=== PATIENT | male | born 1940 | race Caucasian/White ===

== ENCOUNTER 2020-04-05 18:37 | Inpatient (IN) | payer MEDICARE, OTHER ==
[~2020-04-05] VITALS: Ht 180.3 cm; Wt 81.3 kg
[2020-04-05] MEDS ORDERED: IV NORMAL SALINE 500 ML BAG IV ONE (19:00)
--- NOTE | 2020-04-05 19:20 | NUR ---
Dr. Shubham Christina on panel call with Steve Tejada DNP. Patient accepted for admission to [facility], diagnosis: near syncope and PUI.
[2020-04-05] MEDS ORDERED: calcium citrate PO (19:41)
[2020-04-05] MEDS ORDERED: vitamin b-6 PO (19:41)
[2020-04-05] MEDS ORDERED: MELO-105 PO (19:41)
[2020-04-05] MEDS ORDERED: LITH300T3 PO (19:41)
[2020-04-05] MEDS ORDERED: fish oil PO (19:41)
[2020-04-05] MEDS ORDERED: MEMA28CA5 PO (19:41)
[2020-04-05] MEDS ORDERED: IMIP25TA6 PO (19:41)
[2020-04-05] MEDS ORDERED: SOLI5TAB7 PO (19:41)
[2020-04-05] MEDS ORDERED: LOSA25TA27 PO (19:41)
[2020-04-05] MEDS ORDERED: ALEN70TA6 PO (19:41)
[2020-04-05] MEDS ORDERED: VALP250C3 PO (19:41)
[2020-04-05] MEDS ORDERED: MAGN400C PO (19:41)
[2020-04-05] MEDS ORDERED: CHOL10002 PO (19:41)
[2020-04-05] MEDS ORDERED: MIRA50TA PO (19:41)
[2020-04-05] MEDS ORDERED: diclofenac TOP (19:41)
[2020-04-05] MEDS ORDERED: LITH450T2 PO (19:41)
[2020-04-05] MEDS ORDERED: FLUO20CA36 PO (19:41)
[2020-04-05] MEDS ORDERED: TAMS-3 PO (19:41)
[2020-04-05] MEDS ORDERED: vitamin b-12 PO (19:41)
[2020-04-05] MEDS ORDERED: VITA400T9 PO (19:41)
[2020-04-05] MEDS ORDERED: PENT400T17 PO (19:41)
[2020-04-05 19:46] LABS: BASOPHILS % (AUTO) 0.2 % (0.0-2.0); EOSINOPHILS % (AUTO) 0.4 % (0.0-7.0); HEMOGLOBIN 12.6 g/dL (12.5-16.3); LYMPHOCYTES # (AUTO) 0.4 K/uL (20.0-40.0); LYMPHOCYTES % (AUTO) 3.2 % (20.5-51.5); MEAN CORPUSCULAR HEMOGLOBIN 30.2 uug (23.8-33.4); MEAN CORPUSCULAR HGB CONC 33 g/dL (32.5-36.3); MEAN CORPUSCULAR VOLUME 91.5 fL (73.0-96.2); MONOCYTES # (AUTO) 0.9 K/uL (2.0-10.0); MONOCYTES % (AUTO) 7.1 % (0.0-11.0); NEUTROPHILS # (AUTO) 10.8 K/uL (1.8-8.9); NEUTROPHILS % (AUTO) 89.1 % (38.5-71.5); PLATELET COUNT (AUTO) 164 K/uL (152-348); RED BLOOD CELL COUNT(AUTO) 4.15 MIL/uL (4.06-5.63); WHITE BLOOD COUNT (AUTO) 12.2 K/uL (3.6-10.2)
[2020-04-05] MEDS ORDERED: ACETAMINOPHEN 650 MG/20.3 ML LIQUID UDC PO ONE (20:00)
[2020-04-05] MEDS ORDERED: ACETAMINOPHEN 650 MG/20.3 ML LIQUID UDC ONE (20:07)
[2020-04-05 20:09] LABS: CREATININE 1.3 mg/dL (0.6-1.3); POTASSIUM 4.5 mmol/L (3.5-5.1)
[2020-04-05] MEDS ORDERED: CEFEPIME HCL 1 G in IV DEXTROSE 5% 50 ML IV ONE (20:15)
[2020-04-05] MEDS ORDERED: VANCOMYCIN 1G/D5W 200 ML PIGGYBACK IV ONE (20:15)
[2020-04-05] MEDS ORDERED: CEFEPIME HCL 1 G VIAL ONE (20:40)
[2020-04-05] MEDS ORDERED: MAGNESIUM HYDROXIDE 30 ML LIQUID UDC PO PRN (20:45)
[2020-04-05] MEDS ORDERED: ACETAMINOPHEN 325 MG TABLET PO PRN (20:45)
[2020-04-05] MEDS ORDERED: MELOXICAM 7.5 MG TABLET PO PRN (20:45)
[2020-04-05] MEDS ORDERED: Z GUARD REMEDY PASTE 57 GM TUBE TOP PRN (20:45)
[2020-04-05] MEDS ORDERED: DICLOFENAC 1% TOP PRN (20:45)
[2020-04-05] MEDS ORDERED: ONDANSETRON 4 MG/2 ML VIAL IV PRN (20:45)
--- NOTE | 2020-04-05 21:05 | NUR ---
Report givento Twila LEDESMA
[2020-04-05 21:15] LABS: *BILIRUBIN,URIN NEGATIVE (NEGATIVE); *CLARITY,URINE CLEAR (CLEAR); *COLOR,URINE YELLOW (YELLOW); *KETONES,URINE NEGATIVE (NEGATIVE); *UROBILINOGEN,URINE 0.2 E.U./dl (NORMAL); LEUKOCYTE ESTERASE ,URINE 1+ (NEGATIVE); NITRITE, URINE POSITIVE (NEGATIVE); PH,URINE 7.5 (5.0-8.0); UGLUCOSE NEGATIVE (NEGATIVE)
[2020-04-05 21:17] LABS: *BLOOD, URINE TRACE (NEGATIVE)
--- NOTE | 2020-04-05 21:20 | NUR ---
NEW ADMISSION PT RECEIVED INTO CARE VIA HEIDI FROM ER. PT IS ALERT/ORIENTED X1, FARSI SPEAKING ONLY, BUT UNDERSTANDS SOME TANZANIAN AND CAN FOLLOW DIRECTIONS. ALL PERTINENT ASSESSMENTS COMPLETED, VS ARE WNL, PT IS AFEBRILE, AND RESTING COMFORTABLY IN BED, WATCHING TELEVISION. VANCOMYCIN INFUSION CONTINUED FROM ER, ORDERED. ALL SAFETY, FALL, AND ISOLATION PRECAUTIONS ARE IN PLACE. CALL LIGHT AND PERSONAL ITEMS ARE WITHIN REACH. WILL CONTINUE TO MONITOR AND ASSESS.
[2020-04-05 21:49] VITALS: BP 111/58
[2020-04-05] MEDS: ENOXAPARIN SODIUM 40 MG/0.4 ML DISP.SYRIN SQ SCH (22:20)
[2020-04-05 22:44] LABS: BILIRUBIN,DIRECT 0.1 mg/dL (0.0-0.2); BILIRUBIN,TOTAL 0.5 mg/dL (0.2-1.0)
[2020-04-06] VITALS: BP 115/62
[2020-04-06] MEDS ORDERED: CEFEPIME HCL 1 G VIAL ONE (00:27)
[2020-04-06 01:44] LABS: RBC,URINE 0-3 /HPF (0-3)
[2020-04-06 01:45] LABS: BACTERIA,URINE MODERATE /HPF (NONE SEEN); SQUAMOUS EPITHELIAL CELL,UR FEW /HPF (NONE SEEN)
[2020-04-06 04:30] VITALS: BP 115/65
--- NOTE | 2020-04-06 05:00 | NUR ---
Patient slept intermittently throughout night after admission with no complaints of pain or discomfort verbalized or noted/observed by this nurse. All prescribed medications provided as ordered, with no adverse side effects verbalized by patient or noted/observed by this nurse. All safety, fall, and isolation precautions remain in effect. Call light and personal items remain within reach.
[2020-04-06] MEDS: IV NS 1000 ML 1,000 ML IV PRN ×2 (05:08→21:12)
[2020-04-06] MEDS ORDERED: CEFEPIME HCL 1 G in IV DEXTROSE 5% 50 ML IV SCH (06:00)
[2020-04-06 06:06] LABS: BASOPHILS % (AUTO) 0.1 % (0.0-2.0); EOSINOPHILS % (AUTO) 0.1 % (0.0-7.0); HEMATOCRIT 36.9 % (36.7-47.1); HEMOGLOBIN 12.2 g/dL (12.5-16.3); LYMPHOCYTES # (AUTO) 0.7 K/uL (20.0-40.0); LYMPHOCYTES % (AUTO) 6.3 % (20.5-51.5); MEAN CORPUSCULAR HEMOGLOBIN 30.5 uug (23.8-33.4); MEAN CORPUSCULAR HGB CONC 33 g/dL (32.5-36.3); MEAN CORPUSCULAR VOLUME 92.2 fL (73.0-96.2); MONOCYTES # (AUTO) 1.3 K/uL (2.0-10.0); MONOCYTES % (AUTO) 11.6 % (0.0-11.0); NEUTROPHILS # (AUTO) 9.4 K/uL (1.8-8.9); NEUTROPHILS % (AUTO) 81.9 % (38.5-71.5); PLATELET COUNT (AUTO) 163 K/uL (152-348); RED BLOOD CELL COUNT(AUTO) 4.01 MIL/uL (4.06-5.63); WHITE BLOOD COUNT (AUTO) 11.5 K/uL (3.6-10.2)
[2020-04-06 06:28] LABS: CREATININE 1.3 mg/dL (0.6-1.3); MAGNESIUM 2.3 mg/dL (1.8-2.4); PHOSPHOROUS 3.1 mg/dL (2.5-4.9); POTASSIUM 4.2 mmol/L (3.5-5.1)
[2020-04-06 06:30] LABS: THYROID STIMULATING HORMONE 0.303 mIU/mL (0.358-3.740)
--- NOTE | 2020-04-06 08:10 | NUR ---
RECEIVED PATIENT LAYING IN BED, AWAKE, ALERT AND ORIENTED TIME 2. NO SIGNS OF RESPIRATORY DISTRESS AT THIS TIME, PATIENT IS SATURATING WELL ON ROOM AIR. PATIENT HAS NO COMPLAINTS OF PAIN OR DISCOMFORT AT THIS TIME. IV PATENT AND INTACT ON RIGHT HAND 20 GAUGE RUNNING NORMAL SALINE AT 75 CC PER HOUR. ALL SAFETY AND FALL PRECAUTION MEASURES ARE IN PLACE BED LOCKED AND IN LOWEST POSITION WITH ALARM ACTIVATED. CALL LIGHT AND PERSONAL ITEMS ARE WITHIN REACH. WILL CONTINUE TO MONITOR AND ASSESS.
[2020-04-06] MEDS ORDERED: SOLIFENACIN SUCCINATE 5 MG TABEC PO SCH (09:00)
[2020-04-06] MEDS ORDERED: Medication Not On Formulary EA (Mirabegron (Myrbetriq) 50 MG) PO SCH (09:00)
[2020-04-06] MEDS: TAMSULOSIN HCL 0.4 MG CAP.SR.24H PO SCH (09:38)
[2020-04-06] MEDS: OMEGA-3 FATTY ACIDS/FISH OIL CAPSULE PO SCH (09:38)
[2020-04-06] MEDS: CYANOCOBALAMIN 100 MCG TABLET PO SCH (09:38)
[2020-04-06] MEDS: OXYBUTYNIN CHLORIDE 5 MG TABLET PO SCH ×2 (09:39→17:04)
[2020-04-06] MEDS: CALCIUM CITRATE 950MG TAB PO SCH (09:39)
[2020-04-06] MEDS: FLUOXETINE HCL 20 MG CAPSULE PO SCH (09:39)
[2020-04-06] MEDS: MEMANTINE HCL 10 MG TABLET PO SCH ×2 (09:39→17:04)
[2020-04-06] MEDS: MAGNESIUM OXIDE 400 MG TABLET PO SCH (09:39)
[2020-04-06] MEDS: VALPROIC ACID 250 MG CAPSULE PO SCH ×2 (09:40→17:20)
[2020-04-06] MEDS: PYRIDOXINE HCL 100 MG TABLET PO SCH (09:40)
[2020-04-06] MEDS: IMIPRAMINE HCL 25 MG TABLET PO SCH (09:40)
[2020-04-06] MEDS: VITAMIN E 400 UNITS CAPSULE PO SCH (09:40)
[2020-04-06] MEDS: PENTOXIFYLLINE 400 MG TABLET.SA PO SCH ×3 (09:41→17:04)
[2020-04-06 10:15] VITALS: BP 108/61
[2020-04-06] MEDS: CEFEPIME HCL 1 G in IV DEXTROSE 5% 50 ML IV SCH ×2 (13:07→21:11)
[2020-04-06] MEDS ORDERED: VANCOMYCIN IV 1,000 MG in IV DEXTROSE 5% 250 ML IV SCH (15:00)
--- NOTE | 2020-04-06 16:02 | NUR ---
SUPPORT MERCHANDISER report patient's blood pressure at 71/31, reassess and blood pressure was 70/35. Put patient in Trendelenburg position and monitored blood pressure every 15 minutes.
[2020-04-06 16:27] VITALS: BP 71/36
--- NOTE | 2020-04-06 17:37 | NUR ---
Blood pressure is currently 99/47 and is sitting comfortably in bed eating dinner. Will continue to monitor
--- NOTE | 2020-04-06 18:40 | NUR ---
Patient resting comfortably in bed. Patient reported back pain and medication was given as ordered . All prescribed medications provided as ordered, with no adverse side effects verbalized by patient or noted/observed by this nurse. All safety,fall, and isolation precautions remain in effect. Call light and personal items remain within reach. Will endorse to oncoming nurse to reposition patient every 2 hours to decrease discomfort.
--- NOTE | 2020-04-06 19:15 | NUR ---
Patient in bed awake. Patient speaks Farsi but can understand simple commands. Patient denies any acute distress or pain at this time. Patient is NSR with First degree block on tele monitor. Vitals stable, on room air and saturating WNL. Pt is afebrile. RH 20G IV is intact with NS running at 75cc. Safety measures in place. Bed low and locked in position. Call light within reach. Will continue with the plan of care.
[2020-04-06 20:45] VITALS: BP 104/56
[2020-04-06] MEDS: ENOXAPARIN SODIUM 40 MG/0.4 ML DISP.SYRIN SQ SCH (21:04)
--- NOTE | 2020-04-06 21:35 | NUR ---
Gave report to BALTAZAR Hudson. Vitals stable
--- NOTE | 2020-04-06 21:36 | NUR ---
RECEIVED PT AWAKE, ALERT AND ORIENTEDX4. PT IN NO ACUTE DISTRESS. IV INTACT. SAFETY AND COMFORT PROVIDED.WILL CONTINUE TO MONITOR.
[2020-04-07] VITALS: BP 120/58
--- NOTE | 2020-04-07 00:01 | NUR ---
DC ISOLATION PER GORDO PERES NP. COVID RESULT NEGATIVE. PT TO BE TRANSFERRED IN ROOM 312.
[2020-04-07 04:43] VITALS: BP 93/55
[2020-04-07] MEDS: CEFEPIME HCL 1 G in IV DEXTROSE 5% 50 ML IV SCH ×3 (05:27→22:02)
--- NOTE | 2020-04-07 06:23 | NUR ---
PT SLEPT INTERMITTENTLY. PT IN NO ACUTE DISTRESS. IV INTACT. PRESCRIBED MEDICATION GIVEN AND PT TOLERATED IT WELL.PT COVID NEGATIVE RESULT. PT CHANGE ROOM FROM 314 TO 312. SAFETY AND COMFORT PROVIDED. ALL NEEDS ARE MET. WILL ENDORSE TO INCOMING NURSE FOR CONTINUITY OF CARE.
[2020-04-07] MEDS: CYANOCOBALAMIN 100 MCG TABLET PO SCH (08:20)
[2020-04-07] MEDS: TAMSULOSIN HCL 0.4 MG CAP.SR.24H PO SCH (08:20)
[2020-04-07] MEDS: OXYBUTYNIN CHLORIDE 5 MG TABLET PO SCH ×2 (08:20→16:55)
[2020-04-07] MEDS: FLUOXETINE HCL 20 MG CAPSULE PO SCH (08:21)
[2020-04-07] MEDS: MAGNESIUM OXIDE 400 MG TABLET PO SCH (08:21)
[2020-04-07] MEDS: MEMANTINE HCL 10 MG TABLET PO SCH ×2 (08:21→16:54)
[2020-04-07] MEDS: OMEGA-3 FATTY ACIDS/FISH OIL CAPSULE PO SCH (08:21)
[2020-04-07] MEDS: PENTOXIFYLLINE 400 MG TABLET.SA PO SCH ×3 (08:24→16:54)
[2020-04-07] MEDS: VALPROIC ACID 250 MG CAPSULE PO SCH ×2 (08:24→16:54)
[2020-04-07] MEDS: PYRIDOXINE HCL 100 MG TABLET PO SCH (08:29)
[2020-04-07] MEDS: IMIPRAMINE HCL 25 MG TABLET PO SCH (08:29)
[2020-04-07] MEDS: CALCIUM CITRATE 950MG TAB PO SCH (08:29)
[2020-04-07] MEDS: VITAMIN E 400 UNITS CAPSULE PO SCH (08:29)
--- NOTE | 2020-04-07 08:30 | NUR ---
RECEIVED PATIENT IN BED AWAKE ALERT COOPERATIVE AND COMPLIANT WITH HIS MEDICATIONS REMAIN ON IVF ORDERED WITH NO S/S OF INFILTERATION ON SITE TELE ORDERED SR AT THIS TIME VOIDING WELL USING THE URINAL CALL LIGHTS AND PERSONAL BELONGINGS ARE PLACED WITHIN EASY REACH MADE COMFORTABLE WILL CONTINUE TO OBSERVE.
[2020-04-07 09:19] LABS: CREATININE 1.2 mg/dL (0.6-1.3); POTASSIUM 4.3 mmol/L (3.5-5.1)
--- NOTE | 2020-04-07 09:30 | NUR ---
PATIENT SEEN BY THE PHYSICAL THERAPY FOR AMBULATION AND THERAPEUTIC EXERCISES PATIENT AMBULATED WITH THE FRONT WHEEL WALKER IN THE HALLWAY WITH FAIR ENDURANCE AND BACK TO THE BED SO PER THE PHYSICAL THERAPIST THE GOAL IS FOR REHAB EVAL STATED WILL INFORM THE ELECTRIC ACCOUNTING MACHINE OPERATOR.
--- NOTE | 2020-04-07 11:09 | NUR ---
PATIENT SEEN AND EXAMINED BY NADINE VARGAS WITH NO NEW ORDERS AT THIS TIME.
[2020-04-07 12:28] VITALS: BP 102/58
[2020-04-07] MEDS: IV NS 1000 ML 1,000 ML IV PRN (12:57)
[2020-04-07 16:12] VITALS: BP 99/55
--- NOTE | 2020-04-07 16:45 | NUR ---
IV SITE ON HIS RIGHT HAND NOTED LEAKING REMOVED AND REINSERTED TO HIS LEFT HAND WITH ONE ATTEMPT AND CONTINUED ON THE IVF ORDERED.
--- NOTE | 2020-04-07 17:00 | NUR ---
DR ROSE RN MDS COORDINATOR HERE TO SEE PATIENT AND STATED TO STOP THE IVF AWARE THAT HIS SYSTOLIC BLOOD PRESSURE IS 97-99 SYSTOLIC STATED ITS OKAY TO STOP WILL ORDER ECHO TO EVALUATE HIS HEART FUTHER.IVF STOPPED AT THIS TIME
--- NOTE | 2020-04-07 18:36 | NUR ---
CHEST XRAY COMPLETED ORDERED AWAITING FOR RESULTS.
--- NOTE | 2020-04-07 19:30 | NUR ---
Received patient lying in bed calm. No signs or symptoms of acute distress at this time. AAOx3. filler and trimmer on and showing sinus rhythm. Patient is on RA and denies SOB. Left hand 20G patent and intact. Safety measures intact and will continue to monitor.
[2020-04-07] MEDS: ENOXAPARIN SODIUM 40 MG/0.4 ML DISP.SYRIN SQ SCH (20:20)
[2020-04-07 20:59] VITALS: BP 104/62
--- NOTE | 2020-04-07 21:28 | NUR ---
Spoke to Dr. Maurer in regard to Chest XR results. No new orders at this time.
[2020-04-08 00:21] VITALS: BP 115/58
[2020-04-08 04:00] VITALS: BP 105/56
[2020-04-08] MEDS: CEFEPIME HCL 1 G in IV DEXTROSE 5% 50 ML IV SCH ×2 (05:39→13:27)
--- NOTE | 2020-04-08 06:14 | NUR ---
PT SLEPT WELL. COIL WINDING MACHINES SET UP MECHANIC ON SINUS RHYTHM. AAOX3. NO SIGNS OR SYMPTOMS OF ACUTE DISTRESS AT THIS TIME. LEFT HAND IV PATENT AND INTACT. PT TOLERATED ALL MEDICATIONS WELL. ALL PATIENT NEEDS WERE MET AND ATTENDED TO. SAFETY MEASURES REMAIN INTACT AND WILL ENDORSE TO ONCOMING SHIFT.
[2020-04-08 06:19] LABS: BASOPHILS % (AUTO) 0.3 % (0.0-2.0); EOSINOPHILS # (AUTO) 0.3 K/uL (0.0-0.7); EOSINOPHILS % (AUTO) 3.9 % (0.0-7.0); HEMATOCRIT 32.9 % (36.7-47.1); HEMOGLOBIN 11.1 g/dL (12.5-16.3); LYMPHOCYTES # (AUTO) 1.4 K/uL (20.0-40.0); LYMPHOCYTES % (AUTO) 19.4 % (20.5-51.5); MEAN CORPUSCULAR HEMOGLOBIN 31.1 uug (23.8-33.4); MEAN CORPUSCULAR HGB CONC 34 g/dL (32.5-36.3); MEAN CORPUSCULAR VOLUME 92.1 fL (73.0-96.2); MONOCYTES # (AUTO) 0.7 K/uL (2.0-10.0); MONOCYTES % (AUTO) 10.4 % (0.0-11.0); NEUTROPHILS # (AUTO) 4.6 K/uL (1.8-8.9); PLATELET COUNT (AUTO) 154 K/uL (152-348); RED BLOOD CELL COUNT(AUTO) 3.57 MIL/uL (4.06-5.63)
[2020-04-08 06:31] LABS: CREATININE 1.3 mg/dL (0.6-1.3); POTASSIUM 4.4 mmol/L (3.5-5.1)
[2020-04-08 07:20] LABS: PHOSPHOROUS 3.1 mg/dL (2.5-4.9)
[2020-04-08 07:21] LABS: MAGNESIUM 2.2 mg/dL (1.8-2.4)
[2020-04-08] MEDS: OMEGA-3 FATTY ACIDS/FISH OIL CAPSULE PO SCH (08:16)
[2020-04-08] MEDS: IMIPRAMINE HCL 25 MG TABLET PO SCH (08:17)
[2020-04-08] MEDS: MAGNESIUM OXIDE 400 MG TABLET PO SCH (08:17)
[2020-04-08] MEDS: VALPROIC ACID 250 MG CAPSULE PO SCH ×2 (08:17→16:08)
[2020-04-08] MEDS: TAMSULOSIN HCL 0.4 MG CAP.SR.24H PO SCH (08:17)
[2020-04-08] MEDS: FLUOXETINE HCL 20 MG CAPSULE PO SCH (08:17)
[2020-04-08] MEDS: CYANOCOBALAMIN 100 MCG TABLET PO SCH (08:17)
[2020-04-08] MEDS: CALCIUM CITRATE 950MG TAB PO SCH (08:17)
[2020-04-08] MEDS: VITAMIN E 400 UNITS CAPSULE PO SCH (08:17)
[2020-04-08] MEDS: PYRIDOXINE HCL 100 MG TABLET PO SCH (08:17)
[2020-04-08] MEDS: MEMANTINE HCL 10 MG TABLET PO SCH ×2 (08:17→16:08)
[2020-04-08] MEDS: PENTOXIFYLLINE 400 MG TABLET.SA PO SCH ×3 (08:17→16:08)
[2020-04-08] MEDS: OXYBUTYNIN CHLORIDE 5 MG TABLET PO SCH ×2 (08:17→16:07)
[2020-04-08 12:00] VITALS: BP 118/71
[2020-04-08 16:00] VITALS: BP 117/71
--- NOTE | 2020-04-08 17:14 | NUR ---
dc orders received noted and carried out,dc heplock per md orders dc instruction and education given to the pt pt left the facility via private car in stable condition
[2020-04-09] MEDS ORDERED: ALENDRONATE SODIUM 70 MG TABLET PO SCH (08:00)
== END 2020-04-08 17:20 | disposition home or self-care (01) | DRG 872 ==
LOC: ER 18:44 → TELE3 21:07
PROVIDERS: ADMIT Nurse Practitioner Acute Care; ATTEND Nurse Practitioner Acute Care
DX: A41.9 Sepsis, unspecified organism (principal); N39.0 Urinary tract infection, site not specified; E87.2 Acidosis; J98.11 Atelectasis; N17.9 Acute kidney failure, unspecified; R65.20 Severe sepsis without septic shock; E86.0 Dehydration; R55 Syncope and collapse; D72.829 Elevated white blood cell count, unspecified; N32.81 Overactive bladder; G89.29 Other chronic pain; F03.90 Unspecified dementia, unspecified severity, without behavioral disturbance, psychotic disturbance, mood disturbance, and anxiety; F31.9 Bipolar disorder, unspecified; I73.9 Peripheral vascular disease, unspecified; M54.9 Dorsalgia, unspecified; N40.0 Benign prostatic hyperplasia without lower urinary tract symptoms; I12.9 Hypertensive chronic kidney disease with stage 1 through stage 4 chronic kidney disease, or unspecified chronic kidney disease; N18.9 Chronic kidney disease, unspecified
CPT/HCPCS: 36415; 70030-TC; 71045; 83605; 83615; 83735; 84100; 84443; 85025; 86140; 86850; 86900; 86901; 87040; 87086; 93005; 93307; 93880; A4663; G0378; J0692; J1650; J3370; J7030; J7040; J7060; U0003-CS

== ENCOUNTER 2021-02-14 12:33 | Emergency (ER) | payer MEDICARE, OTHER ==
[~2021-02-14] VITALS: Ht 188 cm; Wt 78.9 kg
[~2021-02-14 12:33] MED LIST: ALEN70TA80 PO; CHOL10002 PO; FLUO20CA36 PO; IMIP25TA6 PO; LITH300T3 PO; LITH450T2 PO; LOSA25TA27 PO; MAGN400C PO; MELO-105 PO; MEMA28CA5 PO; MIRA50TA PO; PENT400T17 PO; SOLI5TAB7 PO; TAMS-3 PO; VALP250C3 PO; VITA400T9 PO; calcium citrate PO; diclofenac TOP; fish oil PO; vitamin b-12 PO; vitamin b-6 PO
[2021-02-14] MEDS ORDERED: NEOMY/BACITRA/POLYMYXIN B OINT UD PACKET TP ONE ×2 (12:45→12:56)
[2021-02-14] MEDS ORDERED: TDAP DIPH,PERTUSS,TET VAC/PF 0.5 ML DISP.SYRIN IM ONE ×2 (12:45→12:57)
[2021-02-14] MEDS ORDERED: CEPH500C2 PO (12:46)
--- NOTE | 2021-02-14 13:22 | NUR ---
Gave pt RX and d/c instructions, pt & family verbalized understanding.
== END 2021-02-14 13:25 | disposition home or self-care (01) ==
LOC: ER 12:38
DX: S61.212A Laceration without foreign body of right middle finger without damage to nail, initial encounter (principal); S61.214A Laceration without foreign body of right ring finger without damage to nail, initial encounter; W01.0XXA Fall on same level from slipping, tripping and stumbling without subsequent striking against object, initial encounter; Y92.89 Other specified places as the place of occurrence of the external cause; I10 Essential (primary) hypertension; I73.9 Peripheral vascular disease, unspecified; F03.90 Unspecified dementia, unspecified severity, without behavioral disturbance, psychotic disturbance, mood disturbance, and anxiety; F32.9 Major depressive disorder, single episode, unspecified; Z79.899 Other long term (current) drug therapy
CPT/HCPCS: 90715; A4663